=== PATIENT | male | born 1995 ===

== ENCOUNTER 2016-05-22 20:18 | Emergency (ER) | payer OTHER ==
[~2016-05-22] VITALS: Ht 170.2 cm; Wt 53.4 kg
[2016-05-22 20:26] VITALS: Ht 170.2 cm; Wt 53.4 kg
[2016-05-22] MEDS ORDERED: IBUPROFEN 600 MG TAB PO STA (20:52)
[2016-05-22] MEDS ORDERED: SODIUM CHLORIDE 0.9% 1000ML 1,000 ML IV STA (20:52)
[2016-05-22 21:01] LABS: HEMATOCRIT 38.2 % (42-52); MEAN CELL VOLUME 85.3 fL (80-100); MEAN CORPUSCULAR HEMOGLOBIN 30.4 pg (25-34); MEAN CORPUSCULAR HGB CONC 35.6 g/dl (32-36); MEAN PLATELET VOLUME 11.5 fL (7.4-10.4); PLATELET COUNT 183 K/uL (130-400); RED BLOOD COUNT 4.48 M/uL (4.7-6.1); WHITE BLOOD COUNT 5.45 K/uL (4.8-10.8)
[2016-05-22 21:16] LABS: BUN/CREATININE RATIO 11.1 (10-20); CALCIUM 9.6 mg/dl (8.5-10.1); CREATININE 0.83 mg/dl (0.60-1.40); POTASSIUM 3.3 mmol/L (3.5-5.1)
[2016-05-22] MEDS ORDERED: OSEL75CA12 PO (21:18)
[2016-05-22] MEDS ORDERED: POTASSIUM CHLORIDE 10 MEQ TABCR PO STA (21:32)
[2016-05-22] MEDS ORDERED: ONDANSETRON INJ 2 MG/ML 2 ML VIAL IV STA (21:36)
[2016-05-22 21:38] LABS: COMPLETE YES; IG% 0.2 %; LYMPH % 9.4 %; LYMPH ABS # 0.51 K/uL (1.2-3.4); MONO % 16.7 %; NEUT % 73.7 %
[2016-05-22 22:13] VITALS: BP 103/45; PULSE 107; TEMP 38.1; O2SAT 99
--- NOTE | 2016-05-22 22:31 | EMERGENCY ROOM VISIT NOTE ---
History First contact with patient: 20:42 Chief Complaint: FEVER Stated Complaint: fever History of Present Illness The patient is a 20 year old male who presents to the Emergency Room via EMS with complaints of fever and body aches which started last night. He states his temperature last night was 102. The patient is also complaining of sore throat. He denies any ear pain. He does admit to some cough. The patient states that he was seen at [facility] today were they did a rapid strep which was negative and told him that he had the flu. He was placed on Tamiflu. It is unclear if he actually took one of the Tamiflu tablets yet. He came to the emergency room tonight because his temperature was 102.6 at 6 PM and then 103.6 at 8 PM. It sounds like the patient took the Tamiflu for an antipyretic instead of Tylenol or ibuprofen. Review of Systems 10 system review was performed and was negative unless stated otherwise history of present illness. Past Medical/Surgical History No significant past medical history Social History Smoking Status: Never Smoker Alcohol Use: none Marital Status: single Housing Status: lives with roommate Occupation Status: [employer] student Current/Historical Medications Scheduled Oseltamivir (Tamiflu), 75 MG PO BID Allergies Coded Allergies: Penicillins (Unverified Allergy, Unknown, FAMILY HISTORY, 05/22/16) Physical Exam Vital Signs Date Time Temp Pulse Resp B/P Pulse Ox O2 Delivery O2 Flow Rate FiO2 05/22/16 22:13 38.1 107 16 103/45 99 Room Air 05/22/16 20:31 103 05/22/16 20:26 38.5 102 18 111/51 100 Room Air Physical Exam PHYSICAL EXAM: Vital Signs were reviewed: Temperature 38.5, blood pressure 111/ 51, pulse 102, respiratory rate 18 Reviewed Nurse's notes and agree. Oxygen saturation is 100 % on room air which is normal . GENERAL: 20-year-old male appears in no acute distress. MENTAL STATUS: Alert, oriented, coherent. EARS: Canals clear with bilateral erythema. TMs good light reflex, no erythema or fluid level noted. NOSE: Nasal mucosa with mild erythema engorgement. PHARYNX: Moderate erythema, no edema noted. No exudate noted. Airway is adequate. NECK: Supple, non-tender. No lymphadenopathy noted. LUNGS: Clear to auscultation without wheezes rales or rhonchi. CARDIAC: Slightly tachycardic at a rate of 102 and normal rhythm without murmur. ABDOMEN: Positive bowel sounds all 4 quadrants. Soft, nontender to palpation without organomegaly or masses SKIN: No rashes noted. Medical Decision & Procedures Laboratory Results 05/22/16 20:30 Red Blood Count 4.48, Mean Corpuscular Volume 85.3, Mean Corpuscular Hemoglobin 30.4, Mean Corpuscular Hemoglobin Concent 35.6, Mean Platelet Volume 11.5, Neutrophils (%) (Auto) 73.7, Lymphocytes (%) (Auto) 9.4, Monocytes (%) (Auto) 16.7, Eosinophils (%) (Auto) 0.0, Basophils (%) (Auto) 0.0, Neutrophils # (Auto ) 4.02, Lymphocytes # (Auto) 0.51, Monocytes # (Auto) 0.91, Eosinophils # (Auto ) 0.00, Basophils # (Auto) 0.00 05/22/16 20:30 Test 05/22/16 20:30 05/22/16 21:10 White Blood Count 5.45 K/uL (4.8-10.8) Red Blood Count 4.48 M/uL (4.7-6.1) Hemoglobin 13.6 g/dL (14.0-18.0) Hematocrit 38.2 % (42-52) Mean Corpuscular Volume 85.3 fL (80-100) Mean Corpuscular Hemoglobin 30.4 pg (25-34) Mean Corpuscular Hemoglobin Concent 35.6 g/dl (32-36) Platelet Count 183 K/uL (130-400) Mean Platelet Volume 11.5 fL (7.4-10.4) Neutrophils (%) (Auto) 73.7 % Lymphocytes (%) (Auto) 9.4 % Monocytes (%) (Auto) 16.7 % Eosinophils (%) (Auto) 0.0 % Basophils (%) (Auto) 0.0 % Neutrophils # (Auto) 4.02 K/uL (1.4-6.5) Lymphocytes # (Auto) 0.51 K/uL (1.2-3.4) Monocytes # (Auto) 0.91 K/uL (0.11-0.59) Eosinophils # (Auto) 0.00 K/uL (0-0.5) Basophils # (Auto) 0.00 K/uL (0-0.2) RDW Standard Deviation 42.4 fL (36.4-46.3) RDW Coefficient of Variation 13.6 % (11.5-14.5) Immature Granulocyte % (Auto) 0.2 % Immature Granulocyte # (Auto) 0.01 K/uL (0.00-0.02) Red Blood Cell Morphology Unremarkable Anion Gap 14.0 mmol/L (3-11) Est Creatinine Clear Calc Drug Dose 108.1 ml/min Estimated GFR () 147.8 Estimated GFR (Non- 127.6 BUN/Creatinine Ratio 11.1 (10-20) Calcium Level 9.6 mg/dl (8.5-10.1) Influenza Type A Antigen POS for Influ A (NEG) Influenza Type B Antigen Neg for Influ B (NEG) Medications Administered Medications (Trade) Dose Ordered Sig/Michael Route Start Time Stop Time Status Last Admin Dose Admin Sodium Chloride (Nss 1000ml) 1,000 ml @ 999 mls/hr Q1H1M STAT IV 05/22/16 20:52 05/22/16 21:52 DC 05/22/16 21:06 999 MLS/HR Ibuprofen (Motrin Tab) 600 mg NOW STAT PO 05/22/16 20:52 05/22/16 20:54 DC 05/22/16 21:06 600 MG Potassium Chloride (Klor-Con M10) 10 meq NOW STAT PO 05/22/16 21:32 05/22/16 21:33 DC 05/22/16 22:13 10 MEQ Ondansetron HCl (Zofran Inj) 4 mg NOW STAT IV 05/22/16 21:36 05/22/16 21:37 DC 05/22/16 21:56 4 MG ED Course The patient was evaluated. IV access had already been obtained in the ambulance. The patient was given 1 L normal saline wide-open. The patient was given Motrin 600 mg by mouth for fever. CBC and differential renal profile was ordered. Rapid strep was negative. Culture is pending. The patient's labs are reviewed. White count was normal. The patient's potassium was low at 3.3. The patient was given KDur 10 mEq by mouth. The patient was given Zofran 4 mg IV push for nausea. Rapid influenza was positive for influenza A and negative for influenza B. The patient was informed of the findings. The patient was feeling better was discharged home in stable condition Medical Decision Differential diagnosis include strep pharyngitis, URI, influenza, pneumonia Impression Primary Impression: Influenza A Departure Information Dispostion Home / Self-Care Condition GOOD Referrals No Doctor, Assigned (PCP) Forms HOME CARE DOCUMENTATION FORM, IMPORTANT VISIT INFORMATION Patient Instructions My [facility] Additional Instructions Take Tamiflu as prescribed by [facility] which should be one tablet in the morning and one tablet in late afternoon or early evening until they are gone. Push fluids. Take acetaminophen 500 mg every 6 hours and ibuprofen 600 mg every 6 hours with food. Alternate the 2 medications taking acetaminophen then in 3 hours take ibuprofen, then 3 hours later take acetaminophen and keep alternating every 3 hours. If your symptoms should worsen, return to the ER.
== END 2016-05-22 22:42 | disposition home or self-care (01) ==
LOC: C.EDA 20:23
DX: J11.1 Influenza due to unidentified influenza virus with other respiratory manifestations (principal)